=== PATIENT | male | born 1985 | race Caucasian/White ===

== ENCOUNTER 2023-02-06 17:05 | Emergency (ER) | payer MEDICAID ==
[~2023-02-06] VITALS: Ht 190.5 cm; Wt 109.1 kg
[2023-02-06 17:13] VITALS: BP 156/95; PULSE 80; RESP 18; TEMP 98; O2SAT 98
[2023-02-06] MEDS ORDERED: DOXY-1 PO (18:39)
[2023-02-06] MEDS ORDERED: NAPR-56 PO (18:39)
== END 2023-02-06 19:41 | disposition home or self-care (01) ==
LOC: ER 17:06
DX: K04.7 Periapical abscess without sinus (principal)
CPT/HCPCS: 99283

== ENCOUNTER 2024-06-03 14:49 | Emergency (ER) | payer MEDICAID ==
[~2024-06-03] VITALS: Ht 190.5 cm; Wt 98.5 kg
[2024-06-03 15:03] VITALS: BP 158/74; PULSE 90; TEMP 97.8; O2SAT 99
--- NOTE | 2024-06-03 15:10 | ELECTROCARDIOGRAPH REPORT ---
[facility] Test Date: 2024-06-03 Test Time: 15:08:14 Pat Name: LAYO MORROW Department: EMERGENCY ROOM [id number] Room: Gender: M Supervisor Fishing: LIZZY : 1985 Requested By: MJ CAMEJO Order Number: [id number] Reading MD: Dr. Tejinder Amor Measurements Intervals [place] Rate: 86 P: 75 CA: 141 QRS: 75 QRSD: 91 T: 30 QT: 352 QTc: 421 Interpretive Statements Sinus rhythm Borderline T wave abnormalities Electronically Signed On 06-03-2024 19:01:[address] Tejinder Amor Please click the below link to view image of tracing.
--- NOTE | 2024-06-03 15:20 | Physician Documentation ---
History of Present Illness ~ Chief Complaint: Shortness of Breath Stated Complaint: SOB Time Seen by MD: 15:16 Primary Medical Doctor: none HPI 39-year-old male presents to the ED after having difficulty breathing this morning. Denies having any cardiac history states that he has been drinking lots of alcohol recently he was states he drove drank excessive alcohol y evening states he also anxious along with the shortness of breath this this morning. He was any pain or chest pain nausea vomiting Day of Onset: Jun 03, 2024 Review of Systems All Other Systems at this time: Reviewed and Negative ROS As stated above in the HPI, otherwise all systems are reviewed and negative. Physical Exam Vital Signs: Temperature: 97.8, Source: Temporal, Heart Rate: 90, Respiratory Rate: 18, BP: 158/74, Pulse Oximetry: 99, Weight: 98.450 Physical Exam General: Alert, no apparent distress. Respiratory: Lungs clear, no respiratory distress. Chest: No accessory muscle use. Cardiovascular: Regular rate and rhythm, no murmurs. Gastrointestinal: Soft, nontender, nondistended. Bowels sounds present. Extremities: Normal range of motion, no deformity. Neurologic: Oriented x4. Psychiatric: Normal mood and affect. Skin: Normal color, warm and dry. No edema, no ecchymosis. Progress Results/Orders Results/Orders Vital Signs 06/03/24 06/03/24 06/03/24 15:03 15:16 15:24 Temp 97.8 Pulse 90 Resp 18 18 20 B/P (MAP) 158/74 Pulse Ox 99 Medical Decision Making Findings 39-year-old male presents as someone who has been binge drinking alcohol and in door what I suspect were early alcohol withdrawal symptoms secondary to excessive alcohol use he states he is feels fine now but said that the episode that he had was scary. Said he was going to stop drinking alcohol to avoid those kind of symptoms in the future. Differential Dx:Considerations: Include: anxiety, asthma, bronchitis, cardiogenic shock, CHF, COPD, dysrhythmia, hypertension, accelerated, hyperte nsion, essential, hypertension, malignant, hyperventilation, hyponatremia, myocardial infarction, panic attack, pneumonia, pneumonitis, pneumothorax, PSVT, pulmonary embolism, respiratory distress, respiratory failure, sinusitis, upper resp. infection, other Departure Disposition: HOME / SELF CARE / HOMELESS Impression: Primary Impression: Alcohol withdrawal Condition: Stable Discharge Instructions: Alcohol Withdrawal Syndrome, [id number] Referrals: NO PRIMARY CARE PROVIDER (PCP) Signature Scribe Signature: t Attestation: The note accurately reflects work and decisions made by me.Shane Wei NP 06/03/24 16:28 SHANE HARMON NP Jun 03, 2024 15:20
--- NOTE | 2024-06-03 15:23 | RADIOLOGY REPORT ---
EXAM: XR Chest, 1 View CLINICAL INDICATION: CP TECHNIQUE: Frontal view of the chest. COMPARISON: None FINDINGS: LUNGS AND PLEURAL SPACES: Unremarkable. No consolidation. No pneumothorax. HEART: Unremarkable. No cardiomegaly. MEDIASTINUM: Unremarkable. Normal mediastinal contour. BONES/JOINTS: Unremarkable. No acute fracture. OTHER FINDINGS: . None. IMPRESSION: No acute cardiopulmonary process.
[2024-06-03 15:24] VITALS: RESP 20
== END 2024-06-03 15:41 | disposition home or self-care (01) ==
LOC: ER 14:50
DX: F10.939 Alcohol use, unspecified with withdrawal, unspecified (principal); R06.02 Shortness of breath; Y90.9 Presence of alcohol in blood, level not specified
CPT/HCPCS: 71045; 93005; 99283

== ENCOUNTER 2024-06-27 14:04 | Outpatient (CLI) | payer MEDICAID ==
[~2024-06-27] VITALS: Ht 188 cm; Wt 97.5 kg
[2024-06-27] MEDS ORDERED: NO HOME MEDS (14:47)
[2024-06-27 15:10] LABS: BASOPHILS # (AUTO) 0.1 X10'3 (0-0.2); EOSINOPHILS # (AUTO) 0.2 X10'3 (0-0.9); EOSINOPHILS % (AUTO) 3.3 % (0-6); HEMATOCRIT 45.8 % (42.0-52.0); HEMOGLOBIN 15.6 g/dl (14.0-17.9); LYMPHOCYTES # (AUTO) 1.9 X10'3 (1.1-4.8); LYMPHOCYTES % (AUTO) 31.3 % (21-51); MEAN CORPUSCULAR HEMOGLOBIN 31.5 PG (27.0-31.0); MEAN CORPUSCULAR HGB CONC 33.9 g/dL (33.0-36.5); MEAN CORPUSCULAR VOLUME 92.9 FL (78-98); MEAN PLATELET VOLUME 7.1 FL (7.4-10.4); MONOCYTES # (AUTO) 0.6 X10'3 (0-0.9); MONOCYTES % (AUTO) 10.5 % (2-12); NEUTROPHILS # (AUTO) 3.2 X10'3 (1.8-7.7); NEUTROPHILS % (AUTO) 53.9 % (42-75); PLATELET COUNT 278 X10'3 (140-440); RED BLOOD COUNT 4.94 X10'6 (4.70-6.10); RED CELL DISTRIBUTION WIDTH 13.7 % (11.5-14.5)
[2024-06-27 15:21] LABS: ALANINE AMINOTRANSFERASE 33 U/L (12-78); ALBUMIN 3.8 G/DL (3.4-5.0); ALBUMIN/GLOBULIN RATIO 0.9 (1.1-1.5); ALKALINE PHOSPHATASE 70 IU/L (46-116); ANION GAP 4 (8-16); ASPARTATE AMINO TRANSFERASE 41 U/L (10-37); BILIRUBIN,TOTAL 0.3 MG/DL (0.1-1.0); BLOOD UREA NITROGEN 18 MG/DL (7-18); BUN/CREATININE RATIO 18.4 (10.0-20.0); CALCIUM 8.9 MG/DL (8.5-10.1); CHLORIDE 102 MMOL/L (99-107); CREATININE 0.98 MG/DL (0.60-1.10); GLUCOSE 100 MG/DL (70-104); POTASSIUM 4.4 MMOL/L (3.5-5.1); SODIUM 137 MMOL/L (135-145); TOTAL CARBON DIOXIDE 30.7 MMOL/L (24-32); TOTAL PROTEIN 8.1 G/DL (6.4-8.2); eGFR 85 ML/MIN
[2024-07-04] MEDS ORDERED: famotidine 20mg tablet PO ONE (05:30)
[2024-07-04] MEDS ORDERED: ceFAZolin 2gm/dext,iso 50mL 50 ML IV ONE (05:30)
[2024-07-04] MEDS ORDERED: ringers solution, lacted 1,000 ML IV SCH (05:30)
== END 2024-06-27 23:59 | disposition home or self-care (01) ==
LOC: LAB 14:04 → EDSTATUS 07-04 12:45
PROVIDERS: ATTEND Surgery
DX: Z01.812 Encounter for preprocedural laboratory examination (principal); K40.90 Unilateral inguinal hernia, without obstruction or gangrene, not specified as recurrent
CPT/HCPCS: 36415; 80053; 85025; J7120